=== PATIENT | male | born 1930 | race Caucasian/White ===

== ENCOUNTER → 2017-01-14 | Outpatient (CLI) | payer OTHER ==
[~2017-01-14] MED LIST: ACETAMINOPHEN325 M1 OR; ACETAMINOPHEN325 M1 PO; AMARYL2 MG PO; AMARYL4 MG PO; ASA5UEC OR; ASA81BEC PO; ASPIRIN325; ASPIRIN325 PO; B-12500 MCG PO; BISACODYL SUPP10 MG RE; CARDURA XL8 MG PO; CARDURA8 MG PO; COLACE100 MG OR; COMPOUNDING CREAM; COREG CR20 MG OR; COREG OR; CYCLOBENZAPRINE5 MG PO; DOCUSATE SODIU100 MG PO; FIBER0.52 G1 PO; FIBER0.52 GM PO; GLYCOLAX POWDER17 GM PO; HEMORRHOIDAL HC25 MG RC; JANUVIA25 MG PO; JANUVIA50 MG PO; LANSOPRAZOLE30 MG PO; LISINOPRIL20 MG OR; MELATONIN3 MG; MELOXICAM7.5 MG PO; METOPROLOL SUCC25 M1 PO; MOBIC15 MG PO; MOTRIN 600 MG600 M1 OR; MULTIVITAMINS PO; NEURONTIN 300300 M1 PO; NIACIN 500 MG500 M1 PO; NORCO 5-325 TA1 EACH PO; OMEGA-31000 M1 PO; PLAVIX 75 MG TA75 M1 PO; RANITIDINE 150150 MG PO; SIMVASTATIN40 MG PO; SLEEP AID25 MG PO; TAMSULOSIN HCL0.4 MG PO; TOPROL XL50 MG PO; TRICOR145 MG PO; TUMS PO; TYLENOL325 MG PO; ULTRAM 50MG TAB50 MG PO; VITAMIN D1000 UNI1; VITAMIN E100 UNIT PO; VOLTAREN100 GM TP; ZOCOR40 MG PO; ZOCOR80 MG PO; iron PO
== END ==
LOC: SPEECH 08:56 → RAD 08:56
DX: R13.12 Dysphagia, oropharyngeal phase (principal)

== ENCOUNTER → 2017-02-02 | Outpatient (CLI) | payer OTHER | LOC: MRI 08:19 | DX: R26.81 Unsteadiness on feet (principal) ==

== ENCOUNTER 2017-09-23 17:20 | Emergency (ER) | payer OTHER ==
[~2017-09-23] VITALS: Ht 172.7 cm; Wt 65.3 kg
--- NOTE | ~2017-09-23 | EKG ---
[place] [address] [facility] 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
[2017-09-23 17:54] LABS: ABSOLUTE NEUTROPHILS 2.7 thou/uL (1.4-8.2); BASOPHILS 0.7 % (0.0-2.0); EOSINOPHILS 2.5 % (0.0-3.0); HEMATOCRIT 40.4 % (42.0-52.0); HEMOGLOBIN 13.5 gm/dL (14.0-18.0); LYMPHOCYTES 24.7 % (24.0-44.0); MCH 27.5 pg (26.0-34.0); MCHC 33.4 g/dL (28.0-37.0); MCV 82.4 fL (80.0-100.0); MONOCYTES 7.7 % (1.0-8.0); PLATELET COUNT 125 thou/uL (150-400); POLYS 64.4 % (36.0-66.0); RDW 17.2 % (10.5-14.5); WBC 4.2 thou/uL (4.0-11.0)
[2017-09-23 18:03] LABS: ANION GAP 7 mmol/L (7-16); BUN 24 mg/dL (7-18); CALCIUM 9.5 mg/dL (8.5-10.1); CHLORIDE 104 mmol/L (98-107); CO2 30 mmol/L (21-32); CREATININE 1.1 mg/dL (0.7-1.3); GLUCOSE 92 mg/dL (74-106); POTASSIUM 3.8 mmol/L (3.5-5.1); SODIUM 141 mmol/L (136-145)
[2017-09-23 18:09] LABS: APTT 30.6 Seconds (24.5-32.8); INR 1.2; PROTIME 11.8 Seconds (9.3-11.4)
[2017-09-23 18:11] LABS: URINE BILIRUBIN NEGATIVE (Negative); URINE BLOOD 1+ (Negative); URINE CLARITY CLEAR; URINE COLOR YELLOW; URINE GLUCOSE-RANDOM* NEGATIVE (Negative); URINE KETONES NEGATIVE (Negative); URINE LEUKOCYTES-REFLEX NEGATIVE (Negative); URINE NITRITE-REFLEX NEGATIVE (Negative); URINE PROTEIN (DIPSTICK) NEGATIVE (Negative); URINE UROBILINOGEN 0.2 E.U./dl (0.2-1.0)
[2017-09-23 18:12] LABS: ALBUMIN 3.9 g/dL (3.4-5.0); MAGNESIUM 2.1 mg/dL (1.8-2.4); SGOT 19 U/L (15-37); SGPT 23 U/L (30-65); TOTAL BILIRUBIN 0.6 mg/dL (<0.1-1.0); TOTAL PROTEIN 7.4 g/dL (6.4-8.2); TROPONIN-I < 0.04 ng/mL (<0.06)
[2017-09-23 18:17] LABS: AMP/METHAMP Negative (Negative); BARBITURATES Negative (Negative); BENZODIAZEPINES Negative (Negative); COCAINE Negative (Negative); METHADONE Negative (Negative); OPIATES Negative (Negative); PCP Negative (Negative)
[2017-09-23 18:21] LABS: SQUAMOUS 4-10 Moderate /LPF (0-3)
[2017-09-23 18:22] LABS: CASTS None Seen /LPF (None Seen); CRYSTALS None Seen /LPF (None Seen); TRANSITIONAL EPITHEL CELL 0-3 Few /LPF (None Seen); URINE RBC 3-10 Few /HPF (0-2); URINE WBC-REFLEX 0-5 Rare /HPF (0-5)
[2017-09-23 18:23] LABS: BACTERIA-REFLEX 1-9 Few /HPF (None Seen)
[2017-09-23 20:02] VITALS: BP 150/77
== END 2017-09-23 20:02 | disposition home or self-care (01) ==
LOC: ER 17:20
PROVIDERS: Emergency Medicine
DX: R41.0 Disorientation, unspecified (principal); D69.6 Thrombocytopenia, unspecified; I63.9 Cerebral infarction, unspecified; Z88.8 Allergy status to other drugs, medicaments and biological substances; Z91.041 Radiographic dye allergy status

== ENCOUNTER 2017-12-27 02:02 | Inpatient (IN) | payer OTHER ==
[~2017-12-27] VITALS: Ht 170.2 cm; Wt 56.8 kg
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
--- NOTE | ~2017-12-27 | EKG ---
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 12/27/17 1637 D: 04226 6 Oskar Marinelli MD, FACC /EPI
--- NOTE | ~2017-12-27 | HC ---
[facility] [place] [address] CONSULTATION Name: DIMA SOUZA Room #: 403-P [facility] IN M.R.#: [id number] Admission: 12/27/17 Attend Phys: Shan Ku Discharge: 01/08/18 Date of : [birth year] Report #: [id number] THIS REPORT FOR: //name// CC: Graciela Ku CHIEF COMPLAINT: Left foot and ankle pain. HISTORY OF PRESENT ILLNESS: This very frail 87-year-old gentleman with Parkinson's disease and dementia was admitted for delirium. Prior to discharge, he seemed to have more discomfort involving the left foot and ankle. X-rays reveal significant diffuse degenerative osteoporosis and degenerative arthritis. There was a question of a possible fracture, which was nondisplaced at the anterior aspect of the calcaneus. Subsequent CT scan, however, does not reveal evidence of fracture and demonstrates only osteopenia and degenerative change. At the time of my evaluation, he is unable to respond to most of my questions. He is confused and quite frail. With movement, he does seem to have subjective discomfort rather diffusely at the left ankle and hindfoot region. However, there is no obvious bruising or swelling nor any deformity. There is no objective evidence, which would suggest significant injury. He also has moderate discomfort at the right ankle and hindfoot, although this is less severe. Clinical presentation will be most consistent with simple degenerative arthritis and a possible sprain or contusion. I think this also fits best with his imaging studies, which suggested no obvious fracture. I think this is best managed in a very conservative fashion. Obviously, he has very limited ability to ambulate and needs maximum assist. He may be benefited with use of a protective boot, but I suspect this will be too heavy and too awkward for him to manage and probably the better approach is simply to limit activity and continue maximum assist with a walker for balance and weightbearing as tolerated. I expect his symptoms will gradually improve with time and conservative management. I think he can be discharged back to the extended care facility whenever his other general medical problems resolve. <ELECTRONICALLY SIGNED> By: Dimitry Lan MD 01/11/18 0739 [id number] Dimitry Lan MD /nt
[2017-12-27 02:03] VITALS: BP 146/95
[2017-12-27 02:22] LABS: BE(vivo) 4.5 mmol/L (-2 to +3); PCO2 VENOUS 48.3 mmHg (41.0-51.0); PO2 VENOUS 36.7 mmHg (35.0-45.0)
[2017-12-27 02:25] LABS: ABSOLUTE NEUTROPHILS 3.2 thou/uL (1.4-8.2); BASOPHILS 0.7 % (0.0-2.0); EOSINOPHILS 7.2 % (0.0-3.0); HEMOGLOBIN 12.3 gm/dL (14.0-18.0); LYMPHOCYTES 18.9 % (24.0-44.0); MCH 27.9 pg (26.0-34.0); MCHC 33.3 g/dL (28.0-37.0); MCV 83.9 fL (80.0-100.0); MONOCYTES 6.7 % (1.0-8.0); PLATELET COUNT 125 thou/uL (150-400); POLYS 66.5 % (36.0-66.0); RBC 4.41 mil/uL (4.50-6.00); RDW 16.6 % (10.5-14.5); WBC 4.7 thou/uL (4.0-11.0)
[2017-12-27] MEDS ORDERED: ZOLOFT25 MG PO (02:27)
[2017-12-27] MEDS ORDERED: ARICEPT 5 MG TAB5 MG PO (02:27)
[2017-12-27] MEDS ORDERED: BACTROBAN CREAM30 G1 TOP (02:27)
[2017-12-27] MEDS ORDERED: SINEMET 10-1001 EAC1 PO (02:28)
[2017-12-27] MEDS ORDERED: SINEMET 25-1001 EAC1 PO (02:28)
[2017-12-27] MEDS ORDERED: RAPAFLO8 MG PO (02:28)
[2017-12-27 02:34] LABS: ANION GAP 2 mmol/L (7-16); BUN 24 mg/dL (7-18); CALCIUM 9.8 mg/dL (8.5-10.1); CHLORIDE 105 mmol/L (98-107); CO2 33 mmol/L (21-32); GLUCOSE 121 mg/dL (74-106); POTASSIUM 3.9 mmol/L (3.5-5.1); SODIUM 140 mmol/L (136-145)
[2017-12-27 02:43] LABS: ALBUMIN 3.5 g/dL (3.4-5.0); SGOT 42 U/L (15-37); SGPT 14 U/L (30-65); TOTAL BILIRUBIN 0.3 mg/dL (<0.1-1.0); TOTAL PROTEIN 6.6 g/dL (6.4-8.2); TROPONIN-I < 0.04 ng/mL (<0.06)
[2017-12-27 04:06] VITALS: BP 161/78
[2017-12-27 04:07] LABS: URINE BILIRUBIN NEGATIVE (Negative); URINE BLOOD TRACE (Negative); URINE CLARITY CLEAR; URINE COLOR YELLOW; URINE GLUCOSE-RANDOM* NEGATIVE (Negative); URINE KETONES NEGATIVE (Negative); URINE LEUKOCYTES-REFLEX NEGATIVE (Negative); URINE NITRITE-REFLEX NEGATIVE (Negative); URINE PROTEIN (DIPSTICK) NEGATIVE (Negative); URINE SPECIFIC GRAVITY 1.015 (1.005-1.035); URINE UROBILINOGEN 0.2 E.U./dl (0.2-1.0)
[2017-12-27] MEDS ORDERED: ZOCOR20 MG PO (04:36)
[2017-12-27 04:46] VITALS: BP 151/74
[2017-12-27 05:03] VITALS: BP 157/77
[2017-12-27 19:53] VITALS: BP 132/64
[2017-12-28 04:00] VITALS: BP 131/70
[2017-12-28 05:58] LABS: CALCIUM 8.6 mg/dL (8.5-10.1); CREATININE 0.9 mg/dL (0.7-1.3)
[2017-12-28 06:03] LABS: ABSOLUTE NEUTROPHILS 3.3 thou/uL (1.4-8.2); BASOPHILS 0.7 % (0.0-2.0); EOSINOPHILS 5.1 % (0.0-3.0); HEMATOCRIT 36.5 % (42.0-52.0); LYMPHOCYTES 16.3 % (24.0-44.0); MCH 27.8 pg (26.0-34.0); MCV 84.3 fL (80.0-100.0); MONOCYTES 7.1 % (1.0-8.0); PLATELET COUNT 109 thou/uL (150-400); POLYS 70.8 % (36.0-66.0); RBC 4.33 mil/uL (4.50-6.00); RDW 16.5 % (10.5-14.5); WBC 4.6 thou/uL (4.0-11.0)
[2017-12-28 07:20] VITALS: BP 120/70
[2017-12-28 15:15] VITALS: BP 103/54
[2017-12-28 19:07] VITALS: BP 150/70
[2017-12-29 07:52] VITALS: BP 112/51
[2017-12-29 11:30] VITALS: BP 144/78
[2017-12-29 15:48] VITALS: BP 166/83
[2017-12-29 20:00] VITALS: BP 157/80
[2017-12-30 04:30] VITALS: BP 135/65
[2017-12-30 08:24] VITALS: BP 129/66
[2017-12-30 08:50] VITALS: BP 129/66
[2017-12-30 15:20] VITALS: BP 122/48
[2017-12-30 19:15] VITALS: BP 879/50
[2017-12-31 05:26] VITALS: BP 102/65
[2017-12-31 07:34] VITALS: BP 103/53
[2017-12-31 08:47] VITALS: BP 103/53
[2017-12-31] MEDS ORDERED: DIVALPROEX SOD125 MG PO (14:01)
[2017-12-31 22:10] VITALS: BP 166/68
[2017-12-31 23:30] VITALS: BP 129/56
[2018-01-01 07:35] VITALS: BP 115/56
[2018-01-01] MEDS ORDERED: ZOLOFT25 MG PO (09:57)
[2018-01-01 11:49] VITALS: BP 134/67
[2018-01-01 17:00] VITALS: BP 135/64
[2018-01-01 19:52] VITALS: BP 124/61
[2018-01-02 03:40] VITALS: BP 114/63
[2018-01-02 04:35] VITALS: BP 128/60
[2018-01-02 07:30] VITALS: BP 146/69
[2018-01-02 15:20] VITALS: BP 115/87
[2018-01-02 19:15] VITALS: BP 120/79
[2018-01-02 20:00] VITALS: BP 128/69
[2018-01-03 05:04] VITALS: BP 132/70
[2018-01-03 07:01] VITALS: BP 111/54
[2018-01-03 16:31] VITALS: BP 110/61
[2018-01-03 20:00] VITALS: BP 125/59
[2018-01-04 04:30] VITALS: BP 133/70
[2018-01-04 07:58] VITALS: BP 114/65
[2018-01-04 12:40] VITALS: BP 129/65
[2018-01-04 16:59] VITALS: BP 103/56
[2018-01-05 05:11] VITALS: BP 106/55
[2018-01-05 07:08] VITALS: BP 112/60
[2018-01-05 16:43] VITALS: BP 148/82
[2018-01-05 16:50] VITALS: BP 118/62
[2018-01-05 19:56] VITALS: BP 122/66
[2018-01-06 07:25] VITALS: BP 108/64
[2018-01-06 20:00] VITALS: BP 145/72
[2018-01-07 07:15] VITALS: BP 105/56
[2018-01-07 07:20] VITALS: BP 153/74
[2018-01-07 14:55] VITALS: BP 105/56
[2018-01-07 19:43] VITALS: BP 123/54
[2018-01-08 05:12] VITALS: BP 132/62
[2018-01-08 08:00] VITALS: BP 113/68
[2018-01-08] MEDS ORDERED: FLOMAX0.4 MG PO (14:01)
[2018-01-08 16:00] VITALS: BP 117/54
== END 2018-01-08 16:05 | DRG 70 ==
LOC: ER 02:02 → EROBS 03:54 → 4E 03:54 → SICU 01-05 12:04 → 4N 01-07 21:40
PROVIDERS: Emergency Medicine; Family Medicine; Nurse Practitioner Family
DX: G93.40 Encephalopathy, unspecified (principal); E43 Unspecified severe protein-calorie malnutrition; F03.91 Unspecified dementia, unspecified severity, with behavioral disturbance; T42.8X5A Adverse effect of antiparkinsonism drugs and other central muscle-tone depressants, initial encounter; E11.9 Type 2 diabetes mellitus without complications; R41.0 Disorientation, unspecified; G20 Parkinson's disease; I25.10 Atherosclerotic heart disease of native coronary artery without angina pectoris; I10 Essential (primary) hypertension; E03.9 Hypothyroidism, unspecified; E78.5 Hyperlipidemia, unspecified; F32.9 Major depressive disorder, single episode, unspecified; N40.0 Benign prostatic hyperplasia without lower urinary tract symptoms; R33.9 Retention of urine, unspecified; M62.84 Sarcopenia; E07.81 Sick-euthyroid syndrome; Z90.49 Acquired absence of other specified parts of digestive tract; Z95.5 Presence of coronary angioplasty implant and graft; Z86.73 Personal history of transient ischemic attack (TIA), and cerebral infarction without residual deficits; Z98.49 Cataract extraction status, unspecified eye; Z88.8 Allergy status to other drugs, medicaments and biological substances; Z91.041 Radiographic dye allergy status; Z95.1 Presence of aortocoronary bypass graft
CPT/HCPCS: 10183; 10790; 15001